=== PATIENT | male | born 1965 | race African-American/Black ===

== ENCOUNTER 2025-05-19 10:16 | Emergency (ER) | payer OTHER ==
[~2025-05-19] VITALS: Ht 182.9 cm; Wt 62.0 kg
[2025-05-19 10:19] VITALS: O2SAT 100
[2025-05-19] MEDS: MAGNESIUM/ALUMINUM HYDROXIDE/SIMETHICONE 30ML UDC PO STA (10:55)
[2025-05-19] MEDS: DICYCLOMINE 10 MG/5 ML ORAL SYR PO STA (10:55)
[2025-05-19] MEDS: ONDANSETRON 4MG ODT PO STA (10:55)
[2025-05-19 11:19] LABS: BASOPHILS % 0.3 % (0.0-2.0); EOSINOPHILS % 0.3 % (0.0-5.0); HEMATOCRIT. 49.6 % (42.0-52.0); HEMOGLOBIN. 16.4 g/dL (14.0-18.0); LYMPHOCYTES % 10.3 % (20.0-50.0); MEAN PLATELET VOLUME 8.3 fl (7.4-10.4); MONOCYTES % 5.7 % (2.0-8.0); NEUTROPHILS % 83.4 % (40.0-76.0); PLATELET 278 x1000/uL (130-400); RED BLOOD CELL COUNT 5.41 mill/uL (4.7-6.1); RED CELL DISTRIBUTION WIDTH 15.2 % (11.6-14.6)
[2025-05-19 11:34] LABS: CREATININE 1.0 mg/dL (0.6-1.3); UREA NITROGEN BLOOD 15 mg/dL (9-23)
[2025-05-19 14:10] LABS: ASPARTATE AMINOTRANSFERASE 36 IU/L (<34)
[2025-05-19 14:11] LABS: BILIRUBIN DIRECT 0.2 mg/dL (<=3.0); BILIRUBIN TOTAL 1.0 mg/dL (0.1-1.0); PROTEIN TOTAL 7.7 g/dL (6.0-8.3)
[2025-05-19] MEDS ORDERED: FAMO-135 MT (14:25)
[2025-05-19 14:33] VITALS: BP 156/84; PULSE 71; RESP 18; TEMP 36.6; O2SAT 100
== END 2025-05-19 14:34 | disposition home or self-care (01) ==
LOC: ER 10:16
DX: K29.70 Gastritis, unspecified, without bleeding (principal); I10 Essential (primary) hypertension
CPT/HCPCS: 99284; 80076; 80048; 83690; 85025; 36415; Q0162